=== PATIENT | female | born 1965 | race Caucasian/White ===

== ENCOUNTER 2020-12-25 14:36 | Outpatient (REF) | payer BC, SELFPAY ==
[2020-12-25 18:22] LABS: MANUAL DIFF FLAG NO
[2020-12-25 18:35] LABS: Basophils Percent Auto 0.3 % (0-2); Eosinophils Absolute Auto 0.2 X10*3/uL (0.0-0.4); Eosinophils Percent Auto 1.3 % (0-4); Hematocrit 38.7 % (37-47); Hemoglobin 12.7 g/dl (12.0-16.0); Imm Gran Abs Auto 0.05 X10*3/uL (0.00-0.03); Imm Gran Pct Auto 0.4 % (0.0-0.4); Lymphocytes Absolute Auto 2.8 X10*3/uL (1.2-4.9); Lymphocytes Percent Auto 22.2 % (20-40); Mean Corpuscular HGB Conc 32.8 g/dl (31.0-35.0); Mean Corpuscular Hemoglobin 29.8 pg (27.0-33.0); Mean Corpuscular Volume 90.8 fL (80-98); Mean Platelet Volume 10.1 fL (9.4-12.3); Monocytes Absolute Auto 0.6 X10*3/uL (0.1-1.2); Monocytes Percent Auto 4.4 % (2-11); Neutrophils Percent Auto 71.4 % (45-73); Platelet Count 244 X10*3/uL (160-400); Red Blood Count 4.26 X10*6/uL (4.20-5.50); Red Cell Distribution Width 13.8 % (11.0-16.0); White Blood Count 12.6 X10*3/uL (4.8-10.8)
[2020-12-25 19:26] LABS: Alanine Aminotransferase 17 U/L (0-31); Albumin Level 3.8 g/dL (3.5-5.0); Alkaline Phosphatase 104 U/L (39-117); Anion Gap 12 (12-20); Aspartate Amino Transferase 15 U/L (5-31); Bilirubin Total 0.3 mg/dL (0.0-1.0); Blood Urea Nitrogen 12 mg/dL (9-16); Calcium 8.9 mg/dL (8.4-10.2); Carbon Dioxide 27 mmol/L (22-29); Chloride 103 mmol/L (96-108); Estimated Glomerular Filt Rate > 60; Glucose Random 121 mg/dL (60-115); Potassium 3.7 mmol/L (3.3-5.1); Sodium 138 mmol/L (135-145); Total Protein 7.2 g/dL (6.5-8.0)
[2020-12-25 19:46] LABS: Free T4 (Free Thyroxine) 1.04 ng/dL (0.71-1.85)
== END 2020-12-25 14:37 | disposition home or self-care (01) ==
LOC: HO.MANLDS 14:36
PROVIDERS: PCP Internal Medicine; Visit Provider Physician Assistant
DX: E03.9 Hypothyroidism, unspecified (principal); I10 Essential (primary) hypertension
CPT/HCPCS: 36415; 80053; 84439; 84443; 85025

== ENCOUNTER 2021-05-23 19:33 | Inpatient (IN) | payer BC, SELFPAY ==
--- NOTE | ~2021-05-23 | CT_ITS ---
EXAMINATION: CT ANGIOGRAM OF THE CHEST WITH AND WITHOUT CONTRAST (CT PULMONARY ANGIOGRAM FOR PE) CLINICAL INFORMATION: Reason for Exam Shortness of breath, tachycardia, hypoxia COMPARISON: None TECHNIQUE: Prior to contrast administration, noncontrast localization images were obtained. Subsequently, multidetector volumetric imaging was performed from the thoracic inlet to below the diaphragms following the administration of 85 mL Omnipaque 350 intravenous contrast. No contrast reaction reported Sagittal, coronal, and MIP oblique sagittal reformatted images were obtained on the CT workstation, uploaded to PACS, and reviewed. This CT examination was performed using dose optimization techniques as appropriate, variously including the following: *Automated exposure control *Adjustment of mA and/or kV according to patient size (this includes techniques or standardized protocols for targeted exams where dose is matched to indication/reason for exam; i.e. extremities or head) *Use of iterative reconstruction technique Total exam dose-length product 158 mGy-cm FINDINGS: QUALITY OF STUDY/CONTRAST BOLUS: Satisfactory. PULMONARY ARTERIES: No central or segmental pulmonary emboli. THORACIC AORTA: No aneurysm or dissection. LUNG: There are peripherally predominant patchy groundglass opacities throughout both lungs. PLEURA: No pleural effusion or pneumothorax. MEDIASTINUM: Normal heart size. No pericardial effusion. Shotty mediastinal and bilateral hilar lymph nodes are present, not meeting size criteria for enlargement, likely reactive in etiology. No evidence of septal bowing or right heart strain. CHEST WALL/AXILLA: No axillary or internal mammary lymphadenopathy. OSSEOUS STRUCTURES: No acute or suspicious osseous abnormality. UPPER ABDOMEN: Unremarkable. CT/CT angio chest PE protocol IMPRESSION: * No pulmonary embolism. * Bilateral peripherally predominant patchy groundglass opacities, the pattern and appearance of which is suggestive of COVID pneumonitis. VTE: negative
[2021-05-23 19:42] VITALS: BP 147/83; BP 151/65; PULSE 99; RESP 18; TEMP 37; O2SAT 95; O2SAT 96; BMI 45.1
--- NOTE | 2021-05-23 20:02 | ED_ITS ---
HPI - SOB/Dyspnea General Chief Complaint: Dyspnea Stated Complaint: Shortness Breath Source: patient and EMS Mode of arrival: EMS Limitations: no limitations History of Present Illness HPI Narrative: 55-year-old female presents from urgent care via EMS for hypoxia. Patient was noted to have O2 sat at 86% on room air without exertion. Patient states that she has been ill over the past week, does not smoke, does not have a history of COPD or CHF. Has a distant history of asthma, and has not used an inhaler in over a year. MD elicited complaint: shortness of breath Pertinent past history: asthma Onset (ago): week(s) (1) Context: recent illness Timing: constant Severity: moderate Exacerbating factors: exertion, movement and coughing Relieving factors: oxygen Known history of: asthma Associated symptoms: cough and wheezing Treatment prior to arrival: oxygen Related Data Home oxygen amount: none Home Medications Medication Instructions Recorded Confirmed albuterol sulfate 90 mcg/actuation 2 puff PO Q4H 05/23/21 05/23/21 aerosol inhaler cetirizine 10 mg tablet 1 tab PO DAILY 05/23/21 05/23/21 levothyroxine 150 mcg tablet 1 tab PO DAILY 05/23/21 05/23/21 lisinopril 10 mg tablet 1 tab PO DAILY 05/23/21 05/23/21 Allergies Allergy/AdvReac Type Severity Reaction Status Date / Time No Known Allergies Allergy Verified 05/23/21 20:02 Review of Systems Review of Systems: Constitutional: No Fever, No Chills ENT/Mouth: No sore throat, No Rhinorrhea, No Swallowing Difficulty Eyes: No Eye Pain, No Swelling, No Redness Cardiovascular: No Chest Pain, positive SOB, No Orthopnea, positive Edema Respiratory: Positive hypoxia, Positive Cough, No Sputum, positive Wheezing, positive dyspnea Gastrointestinal: No Nausea, No Vomiting, No Diarrhea, No abdominal Pain, No Hematochezia, No Melena Genitourinary: No Dysuria, No Urinary Frequency, No Hematuria Musculoskeletal: No joint pain, No Myalgias Skin: No Skin Lesions, No rash Neuro: No Weakness, No Numbness, No Dizziness, No Headache Psych: No Anxiety/Panic, No Depression Heme/Lymph: No Bruising, No Lymphadenopathy Endocrine: No Polyuria, No Polydipsia Yes all other systems are reviewed and are negative [facility] Past Medical History Attestation statement: The following information was validated with the patient. Source: old records reviewed Social History Social History Advance Directives: No Patient : No Physical Exam Vital Signs: Vital Signs: Last Vital Signs Temp 100.1 F 05/23/21 22:44 Pulse 115 H 05/23/21 22:44 Resp 20 05/23/21 22:44 BP 130/63 05/23/21 22:44 Pulse Ox 94 05/23/21 22:44 Oxygen Flow Rate 2 05/23/21 19:42 Body Mass Index 45.1 Appearance: Alert. Oriented X3. No acute distress. Head: Normal external exam. Normocephalic. Atraumatic. No Dixon signs noted. No raccoon eyes noted Eyes: PERRLA. EOMI. Conjunctiva and sclera normal. Eyelids normal. ENT: TM's Normal. Pharynx normal. Uvula midline. Moist mucous membranes. No trismus noted. No drooling noted. No muffled voice noted. Neck: Normal inspection. Neck supple. No adenopathy. CVS: Tachycardic heart rate and rhythm. Heart sound normal. No murmurs noted. Pulses equal to all extremities. Respiratory: No respiratory distress. Painless inspiration. Diminished lung sounds throughout, poor air flow, bilateral expiratory wheezing at the upper lobes. Chest nontender. No accessory muscle usage noted. Abdomen: Soft and nontender. Bowel sounds normal in all 4 quadrants. No distention noted. No organomegaly noted. No visible injury noted. Back: No CVA tenderness. Full range of motion noted. Skin: Skin warm and dry. Normal skin color. Normal skin turgor. No rashes/lesions/lacerations noted. Extremities: No lower extremity edema. Extremities exhibit normal range of motion. Extremities nontender. Neuro: cranial nerves 2-12 intact, no focal neural deficits, strength 5/5 to all extremities, No motor deficit. No sensory deficit. Course Course Course Narrative: 55-year-old female presents from Urgent Care with hypoxia at 86%. During my assessment, patient is not wearing oxygen, sitting at her bedside, O2 sat 86% with a heart rate of 110. This [employer] applied nasal cannula O2 at 2 L which bumped her O2 sat up to 90-94%. Patient does not smoke, stated that she has quit smoking several years ago. No history of CHF or COPD. Patient did have an upper right infection last week. Will order CT PE study as patient is hypoxic, tachycardic. 10:24 p.m. patient is COVID positive, discussion with hospitalist, plan of care is to admit for COVID-19 pneumonia, hypoxia, PE study is still pending. 11:29 p.m. CTA negative for PE. Positive for COVID pneumonia. Consultations Consultation #1: dandy Time: 22:34 MDM - SOB/Dyspnea Differential Diagnosis Differential diagnosis: Likely acute exacerbation of chronic obstructive airways disease, congestive heart failure, pneumonia, asthma with exacerbation, pulmonary embolism and anemia Medical Records Attestation: I reviewed the patient's medical records. Lab Data Attestation: I reviewed the patient's lab results. Result diagrams: 05/23/21 20:48 05/23/21 20:48 Labs: Lab Results 05/23/21 05/23/21 05/23/21 Range/Units 20:40 20:47 20:48 WBC 4.8 (4.8-10.8) X10*3/uL RBC 4.33 (4.20-5.50) X10*6/uL Hgb 13.0 (12.0-16.0) g/dl Hct 39.0 (37-47) % MCV 90.1 (80-98) fL MCH 30.0 (27.0-33.0) pg MCHC 33.3 (31.0-35.0) g/dl RDW 14.5 (11.0-16.0) % Plt Count 157 L D (160-400) X10*3/uL MPV 9.8 (9.4-12.3) fL Immature Gran % (Auto) 0.4 (0.0-0.4) % Neut % (Auto) 63.2 (45-73) % Lymph % (Auto) 30.0 (20-40) % [place] % (Auto) 6.2 (2-11) % Eos % (Auto) 0.0 (0-4) % Baso % (Auto) 0.2 (0-2) % Lymph # (Auto) 1.5 (1.2-4.9) X10*3/uL [place] # (Auto) 0.3 (0.1-1.2) X10*3/uL Eos # (Auto) 0.0 (0.0-0.4) X10*3/uL Baso # (Auto) 0.0 (0.0-0.2) X10*3/uL Abs Immat Gran (auto) 0.02 (0.00-0.03) X10*3/uL Absolute Neuts (auto) 3.1 (2.0-8.3) X10*3/uL Absolute Nucleated RBC 0.000 (0.0-0.012) X10*3/uL Nucleated RBC % (auto) 0.0 (0.0-0.2) /100WBC Smear Tech's Comments VERIFIED PT (9.9-13.0) SEC INR (0.9-1.1) APTT (24.1-38.0) SEC Sodium (135-145) mmol/L Potassium (3.3-5.1) mmol/L Chloride (96-108) mmol/L Carbon Dioxide (22-29) mmol/L Anion Gap (12-20) BUN (9-16) mg/dL Creatinine (0.5-1.4) mg/dL Estim Creat Clear Calc Estimated GFR Random Glucose (60-115) mg/dL Lactic Acid 1.0 (0.5-2.0) mmol/L Calcium (8.4-10.2) mg/dL Total Bilirubin (0.0-1.0) mg/dL Direct Bilirubin (0.0-0.5) mg/dL AST (5-31) U/L ALT (0-31) U/L Alkaline Phosphatase (39-117) U/L Troponin I High Sens (<3.5-17.0) ng/L B-Natriuretic Peptide (<100) pg/mL Total Protein (6.5-8.0) g/dL Albumin (3.5-5.0) g/dL Lipase (8-78) U/L Coronavirus (PCR) POSITIVE A (Negative) Influenza Type A (PCR) NEGATIVE (Negative) Influenza Type B (PCR) NEGATIVE (Negative) RSV RNA Qual (PCR) NEGATIVE (Negative) 05/23/21 05/23/21 05/23/21 Range/Units 20:48 20:48 20:48 WBC (4.8-10.8) X10*3/uL RBC (4.20-5.50) X10*6/uL Hgb (12.0-16.0) g/dl Hct (37-47) % MCV (80-98) fL MCH (27.0-33.0) pg MCHC (31.0-35.0) g/dl RDW (11.0-16.0) % Plt Count (160-400) X10*3/uL MPV (9.4-12.3) fL Immature Gran % (Auto) (0.0-0.4) % Neut % (Auto) (45-73) % Lymph % (Auto) (20-40) % [place] % (Auto) (2-11) % Eos % (Auto) (0-4) % Baso % (Auto) (0-2) % Lymph # (Auto) (1.2-4.9) X10*3/uL [place] # (Auto) (0.1-1.2) X10*3/uL Eos # (Auto) (0.0-0.4) X10*3/uL Baso # (Auto) (0.0-0.2) X10*3/uL Abs Immat Gran (auto) (0.00-0.03) X10*3/uL Absolute Neuts (auto) (2.0-8.3) X10*3/uL Absolute Nucleated RBC (0.0-0.012) X10*3/uL Nucleated RBC % (auto) (0.0-0.2) /100WBC Smear Tech's Comments PT 12.7 (9.9-13.0) SEC INR 1.1 (0.9-1.1) APTT 30.1 (24.1-38.0) SEC Sodium 139 (135-145) mmol/L Potassium 3.9 (3.3-5.1) mmol/L Chloride 100 (96-108) mmol/L Carbon Dioxide 30 H (22-29) mmol/L Anion Gap 13 (12-20) BUN 11 (9-16) mg/dL Creatinine 0.70 (0.5-1.4) mg/dL Estim Creat Clear Calc 114.0 Estimated GFR > 60 Random Glucose 94 (60-115) mg/dL Lactic Acid (0.5-2.0) mmol/L Calcium 8.7 (8.4-10.2) mg/dL Total Bilirubin 0.4 (0.0-1.0) mg/dL Direct Bilirubin 0.2 (0.0-0.5) mg/dL AST 36 H D (5-31) U/L ALT 37 H (0-31) U/L Alkaline Phosphatase 92 (39-117) U/L Troponin I High Sens 4.6 (<3.5-17.0) ng/L B-Natriuretic Peptide < 10 (<100) pg/mL Total Protein 7.8 (6.5-8.0) g/dL Albumin 3.9 (3.5-5.0) g/dL Lipase 40 (8-78) U/L Coronavirus (PCR) (Negative) Influenza Type A (PCR) (Negative) Influenza Type B (PCR) (Negative) RSV RNA Qual (PCR) (Negative) Imaging Data CT PE: Attestation: I personally reviewed and interpreted this imaging study as follows: Radiologist's impression: EXAMINATION: CT ANGIOGRAM OF THE CHEST WITH AND WITHOUT CONTRAST (CT PULMONARY ANGIOGRAM FOR PE) CLINICAL INFORMATION: Reason for Exam Shortness of breath, tachycardia, hypoxia COMPARISON: None? TECHNIQUE: Prior to contrast administration, noncontrast localization images were obtained. ? Subsequently, multidetector volumetric imaging was performed from the thoracic inlet to below the diaphragms following the administration of 85 mL Omnipaque 350 intravenous contrast. No contrast reaction reported Sagittal, coronal, and MIP oblique sagittal reformatted images were obtained on the CT workstation, uploaded to PACS, and reviewed. This CT examination was performed using dose optimization techniques as appropriate, variously including the following: *Automated exposure control *Adjustment of mA and/or kV according to patient size (this includes techniques or standardized protocols for targeted exams where dose is matched to indication/reason for exam; i.e. extremities or head) *Use of iterative reconstruction technique Total exam dose-length product 158 mGy-cm FINDINGS: QUALITY OF STUDY/CONTRAST BOLUS: Satisfactory. PULMONARY ARTERIES: No central or segmental pulmonary emboli.? THORACIC AORTA: No aneurysm or dissection. LUNG: There are peripherally predominant patchy groundglass opacities throughout both lungs. PLEURA: No pleural effusion or pneumothorax. MEDIASTINUM: Normal heart size.? No pericardial effusion. Shotty mediastinal and bilateral hilar lymph nodes are present, not meeting size criteria for enlargement, likely reactive in etiology.? No evidence of septal bowing or right heart strain. CHEST WALL/AXILLA: No axillary or internal mammary lymphadenopathy. OSSEOUS STRUCTURES: No acute or suspicious osseous abnormality.? UPPER ABDOMEN: Unremarkable. CT/CT angio chest PE protocol IMPRESSION: *? No pulmonary embolism. *? Bilateral peripherally predominant patchy groundglass opacities, the pattern and appearance of which is suggestive of COVID pneumonitis. ? VTE: negative ECG Data Attestation: I personally reviewed and interpreted this ECG as follows: ECG interpretation date: 05/23/21 ECG interpretation time: 20:53 Interpretation: Ventricular rate 98 beats per minute, OK 164, QRS 80, QT 338, QTC 431, normal sinus rhythm, prior EKGs unavailable secondary to system 130 error Critical Care Time Critical Care Time Critical Care Time: Yes Total Critical Care Time: 45 Attestation: I have personally provided critical care time exclusive of time spent on separately billable procedures. Time includes review of laboratory data, radiology results, discussion with consultants, and monitoring for potential decompensation. Interventions were performed as documented. Discharge Plan Discharge Clinical Impression: COVID-19, Hypoxia Patient Disposition: Admitted As Inpatient
--- NOTE | 2021-05-23 20:02 | ECG_ITS ---
Test Reason : shortness of breath Blood Pressure : / mmHG Vent. Rate : 098 BPM Atrial Rate : 098 BPM P-R Int : 164 ms QRS Dur : 080 ms QT Int : 338 ms P-R-T Axes : 043 -01 040 degrees QTc Int : 431 ms Normal sinus rhythm RSR' or QR pattern in V1 suggests right ventricular conduction delay Otherwise normal ECG No previous ECGs available Referred By: Brenna Hernandez Electronically Signed By:AUDREY GOMEZ MD
[2021-05-23 20:56] LABS: Basophils Percent Auto 0.2 % (0-2); Imm Gran Abs Auto 0.02 X10*3/uL (0.00-0.03); Imm Gran Pct Auto 0.4 % (0.0-0.4); Lymphocytes Absolute Auto 1.5 X10*3/uL (1.2-4.9); MANUAL DIFF FLAG SCAN; Mean Corpuscular HGB Conc 33.3 g/dl (31.0-35.0); Mean Corpuscular Volume 90.1 fL (80-98); Mean Platelet Volume 9.8 fL (9.4-12.3); Monocytes Absolute Auto 0.3 X10*3/uL (0.1-1.2); Monocytes Percent Auto 6.2 % (2-11); Neutrophils Absolute Auto 3.1 X10*3/uL (2.0-8.3); Neutrophils Percent Auto 63.2 % (45-73); Platelet Count 157 X10*3/uL (160-400); Red Blood Count 4.33 X10*6/uL (4.20-5.50); Red Cell Distribution Width 14.5 % (11.0-16.0); SCAN SMEAR FLAG 1; White Blood Count 4.8 X10*3/uL (4.8-10.8)
[2021-05-23 21:02] LABS: INTERNATIONAL NORM RATIO 1.1 (0.9-1.1); Prothrombin Time 12.7 SEC (9.9-13.0)
[2021-05-23 21:05] LABS: Partial Thromboplastin Time 30.1 SEC (24.1-38.0)
[2021-05-23 21:13] LABS: Alanine Aminotransferase 37 U/L (0-31); Albumin Level 3.9 g/dL (3.5-5.0); Alkaline Phosphatase 92 U/L (39-117); Anion Gap 13 (12-20); Aspartate Amino Transferase 36 U/L (5-31); Bilirubin Direct 0.2 mg/dL (0.0-0.5); Bilirubin Total 0.4 mg/dL (0.0-1.0); Blood Urea Nitrogen 11 mg/dL (9-16); Calcium 8.7 mg/dL (8.4-10.2); Carbon Dioxide 30 mmol/L (22-29); Chloride 100 mmol/L (96-108); Estimated Glomerular Filt Rate > 60; Glucose Random 94 mg/dL (60-115); Lipase 40 U/L (8-78); Potassium 3.9 mmol/L (3.3-5.1); Sodium 139 mmol/L (135-145); Total Protein 7.8 g/dL (6.5-8.0)
[2021-05-23 21:16] LABS: B Type Natriuretic Peptide < 10 pg/mL (<100); Troponin-I High Sensitivity 4.6 ng/L (<3.5-17.0)
[2021-05-23 21:22] LABS: SLIDE REVIEW VERIFIED
[2021-05-23] MEDS: iohexoL 350 MG/ML 100 ML INFUS..BTL IV (21:51)
[2021-05-23] MEDS: Albuterol Sulfate (0.083%) 2.5 MG/3 ML VIAL.NEB 10 MG INHALE (21:53)
[2021-05-23 21:54] VITALS: PULSE 90; O2SAT 96
[2021-05-23 21:54] LABS: Influenza A PCR NEGATIVE (Negative); Influenza B PCR NEGATIVE (Negative); Resp Syncy Virus RNA Qual PCR NEGATIVE (Negative); SARS COV2 PCR INHOUSE POSITIVE (Negative)
[2021-05-23] MEDS: methylPREDNISolone Sod Succ 125 MG/2 ML VIAL IVPUSH (22:00)
[2021-05-23] MEDS: cefTRIAXone sodium 1 GM in 0.9 % Sodium Chloride 50 ML IV (22:01)
--- NOTE | 2021-05-23 22:27 | PM.IMHP ---
History of Present Illness Date of Service: 05/23/21 Chief Complaint: Shortness of breath 55-year-old female with no significant past medical history presented to the hospital with a chief complaint of shortness of breath. Patient reported that she is not feeling well over the past 1 week initially felt better for couple days and then she started failed short of breath, dyspnea on exertion and generalized tiredness. Also complains generalized body aches. Went to the urgent care today where she was noted to be low on oxygen and subsequently sent to the hospital for further evaluation. Denies any chest pain palpitations lightheadedness or dizziness. Denies any fevers. Denies any numbness tingling Denies any GI or symptoms. Review of all other systems is negative except mentioned above ER course: Per ER team patient on presentation noted to be saturating at 86% on room air; subsequently placed on 2 L of nasal cannula with improvement of oxygen shown to 93%.; COVID-19 came back positive; CT angio of the chest was done. Was awaiting results. Given Solu-Medrol, ceftriaxone. Admitted to the hospital for further management. Also reported that EKG was nonischemic and troponin was negative. [facility] Pertinent family history: Reviewed Social History Advance Directives: No Patient : No Meds Allergies Allergy/AdvReac Type Severity Reaction Status Date / Time No Known Allergies Allergy Verified 05/23/21 20:02 Active Medications: Current Medications Pharmacy Consult (Consult Rx Perform Med Rec) 1 each MISCELLANE ONCE STA Stop: 05/23/21 22:19 Physical Exam Vital Signs and Narrative: Vital Signs: Last Vital Signs Temp 98.6 F 05/23/21 19:42 Pulse 90 05/23/21 21:54 Resp 18 05/23/21 19:42 BP 151/65 H 05/23/21 19:42 Pulse Ox 95 05/23/21 19:42 Oxygen Flow Rate 2 05/23/21 19:42 Body Mass Index 45.1 Gen: Appears be in no acute distress; speaks in full sentences. On supplemental oxygen. HEENT: NCAT, Moist mucosa. Pulmonary: Coarse breath sounds CVS: Normal S1-S2 Abdomen: BS+, Soft, Nontender Extremities: Warm well perfused Neuro: Alert and awake. Grossly nonfocal Results Labs CBC and Chem 7: 05/23/21 20:48 05/23/21 20:48 Labs: Laboratory Results - last 24 hr 05/23/21 05/23/21 05/23/21 20:40 20:47 20:48 MCV 90.1 MCH 30.0 MCHC 33.3 RDW 14.5 Plt Count 157 L D MPV 9.8 Immature Gran % (Auto) 0.4 Neut % (Auto) 63.2 Lymph % (Auto) 30.0 [place] % (Auto) 6.2 Eos % (Auto) 0.0 Baso % (Auto) 0.2 Lymph # (Auto) 1.5 [place] # (Auto) 0.3 Eos # (Auto) 0.0 Baso # (Auto) 0.0 Abs Immat Gran (auto) 0.02 Absolute Neuts (auto) 3.1 Absolute Nucleated RBC 0.000 Nucleated RBC % (auto) 0.0 Smear Tech's Comments VERIFIED PT INR APTT Anion Gap Estim Creat Clear Calc Estimated GFR Random Glucose Lactic Acid 1.0 Calcium Total Bilirubin Direct Bilirubin AST ALT Alkaline Phosphatase Troponin I High Sens B-Natriuretic Peptide Total Protein Albumin Lipase Coronavirus (PCR) POSITIVE A Influenza Type A (PCR) NEGATIVE Influenza Type B (PCR) NEGATIVE RSV RNA Qual (PCR) NEGATIVE 05/23/21 05/23/21 05/23/21 20:48 20:48 20:48 MCV MCH MCHC RDW Plt Count MPV Immature Gran % (Auto) Neut % (Auto) Lymph % (Auto) [place] % (Auto) Eos % (Auto) Baso % (Auto) Lymph # (Auto) [place] # (Auto) Eos # (Auto) Baso # (Auto) Abs Immat Gran (auto) Absolute Neuts (auto) Absolute Nucleated RBC Nucleated RBC % (auto) Smear Tech's Comments PT 12.7 INR 1.1 APTT 30.1 Anion Gap 13 Estim Creat Clear Calc 114.0 Estimated GFR > 60 Random Glucose 94 Lactic Acid Calcium 8.7 Total Bilirubin 0.4 Direct Bilirubin 0.2 AST 36 H D ALT 37 H Alkaline Phosphatase 92 Troponin I High Sens 4.6 B-Natriuretic Peptide < 10 Total Protein 7.8 Albumin 3.9 Lipase 40 Coronavirus (PCR) Influenza Type A (PCR) Influenza Type B (PCR) RSV RNA Qual (PCR) Imaging Radiologist's Impressions: Impressions Chest CTA 05/23/21 20:02 IMPRESSION: * No pulmonary embolism. * Bilateral peripherally predominant patchy groundglass opacities, the pattern and appearance of which is suggestive of COVID pneumonitis. VTE: negative Assessment and Plan (1) COVID-19: Status: Acute (2) Hypoxia: Status: Acute 55-year-old female with no significant past medical history presented to the hospital with a chief complaint of shortness of breath. Noted to have hypoxia in the setting of COVID-19 infection. Admitted for further management. Acute hypoxic respiratory failure: In the setting of COVID-19 infection. Patient was 86% on room air on presentation On supplemental oxygen via nasal cannula; not in respiratory distress currently. [employer] and closer to home. Azithromycin Decadron 6 mg daily Infectious disease consult for further recommendations GI prophylaxis: Pepcid DVT prophylaxis: Lovenox Code status: Full code Quality Stroke Does the patient have a stroke diagnosis?: No VTE Prior VTE?: No VTE Risk Level:: Medical - moderate - high VTE Device Contraindication: Treatment Not Indicated VTE Drug Contraindication: N/A - Med Ordered
[2021-05-23 22:43] LABS: Venous Blood Gas Refer to POC result
[2021-05-23 22:44] VITALS: BP 130/63; PULSE 115; RESP 20; TEMP 37.8; O2SAT 94
[2021-05-23 22:52] LABS: VBG Base Excess 2.6 mmol/L; VBG HCO3 26 mmol/L (22-26); VBG pCO2 35 mmHg; VBG pH 7.46 (7.32-7.43); VBG pO2 106 mmHg
[2021-05-23] MEDS: Azithromycin 500 MG in 0.9 % Sodium Chloride 250 ML 125 MG IV (22:56)
[2021-05-23] MEDS: Enoxaparin Sodium 40 MG/0.4 ML SYRINGE SUBCUT (22:56)
[2021-05-24] VITALS (10 sets, daily range): BP systolic 119–140; BP diastolic 56–83; PULSE 71–91; RESP 18–24; TEMP 36.6–37.2; O2SAT 91–96; BMI 45.3
[2021-05-24] MEDS: 0.9 % Sodium Chloride Flush 3 ML SYRINGE IVFLUSH ×4 (01:12→22:18)
--- NOTE | 2021-05-24 04:55 | PC.NURSE ---
ADMIT TO 259-1 C OVERFLOW STATUS...AMBULATED FROM STRETCHER TO BED WITH STEADY GAIT...ALERT..ORIENTED X3...SPEECH CLEAR...O2 5 L/M CANNULA..SAO2 92-93%...DENIES SOB....VSS....ORIENTED TO UNIT ROUTINE/ENVIRONMENT...DENIES/OFFERS NO COMPLAINTS...
[2021-05-24 05:33] LABS: Imm Gran Abs Auto 0.01 X10*3/uL (0.00-0.03); Imm Gran Pct Auto 0.3 % (0.0-0.4); Lymphocytes Absolute Auto 0.6 X10*3/uL (1.2-4.9); Lymphocytes Percent Auto 18.4 % (20-40); MANUAL DIFF FLAG SCAN; Mean Corpuscular HGB Conc 33.3 g/dl (31.0-35.0); Mean Corpuscular Hemoglobin 29.8 pg (27.0-33.0); Mean Corpuscular Volume 89.3 fL (80-98); Mean Platelet Volume 9.8 fL (9.4-12.3); Monocytes Absolute Auto 0.1 X10*3/uL (0.1-1.2); Monocytes Percent Auto 2.7 % (2-11); Neutrophils Absolute Auto 2.6 X10*3/uL (2.0-8.3); Neutrophils Percent Auto 78.6 % (45-73); Platelet Count 162 X10*3/uL (160-400); Red Blood Count 4.03 X10*6/uL (4.20-5.50); Red Cell Distribution Width 14.3 % (11.0-16.0); SCAN SMEAR FLAG 1; White Blood Count 3.3 X10*3/uL (4.8-10.8)
[2021-05-24 05:46] LABS: Anion Gap 14 (12-20); Blood Urea Nitrogen 10 mg/dL (9-16); Calcium 8.4 mg/dL (8.4-10.2); Carbon Dioxide 25 mmol/L (22-29); Chloride 102 mmol/L (96-108); Creatinine Clr Calc Pharmacy 105.2; Estimated Glomerular Filt Rate > 60; Glucose Random 236 mg/dL (60-115); Potassium 3.9 mmol/L (3.3-5.1); Sodium 137 mmol/L (135-145)
[2021-05-24 05:57] LABS: SLIDE REVIEW VERIFIED
--- NOTE | 2021-05-24 08:38 | P.PNIM_ITS ---
Subjective Subjective Date of Service: 05/24/21 Interval History: Seen for acute hypoxic respiratory failure d/t covid 19 PNA. Review of Systems Gen: no fever Resp: no sob, no cough CV: no chest, no SANDERS, no leg edema GI: No n/v, no abd pain Neuro: No confusion Physical Exam Vital Signs: Vital Signs: Last Vital Signs Temp 98.9 F 05/24/21 08:00 Pulse 72 05/24/21 08:00 Resp 23 H 05/24/21 08:00 BP 131/81 05/24/21 08:00 Pulse Ox 92 05/24/21 08:00 Oxygen Flow Rate 2 05/23/21 19:42 Body Mass Index 45.3 General: AO X 3, no acute distress Resp: normal breating pattern, speaks in full sentences CVS: S1,S2,RRR GI: +BS, NT, no distention Skin: No rash Neuro: motor grossly intact Psych: appropriate affect Objective Data Active Medications Acetaminophen (Acetaminophen 325 Mg Tablet) 650 mg PO Q6H PRN PRN Reason: Pain, Mild (Pain Scale 1-3) Albuterol/Ipratropium (Albuterol/Iprat 2.5/0.5mg 3 Ml Ampul.Neb) 3 ml INHALE RQ4H PRN PRN Reason: Shortness of Breath/Wheezing Dexamethasone (Dexamethasone 6 Mg Tablet) 6 mg PO DAILY [facility] Enoxaparin Sodium (Enoxaparin Sodium 40 Mg/0.4 Ml Syringe) 40 mg SUBCUT Q12H [facility] Last Admin: 05/23/21 22:56 Dose: 40 mg Documented by: PALAK Famotidine (Famotidine/Pf 20 Mg/2 Ml Vial) 20 mg IVPUSH BID [facility] Azithromycin 500 mg/ Sodium (Chloride) 250 mls @ 125 mls/hr IV Q24H [facility] Last Infusion: 05/24/21 01:11 Dose: 0 mls/hr Documented by: PALAK Melatonin (Melatonin 3 Mg Tablet) 6 mg PO BEDTIME PRN PRN Reason: Insomnia Morphine Sulfate (Morphine Sulfate 2 Mg/Ml Cartridge) 1 mg IVPUSH Q4H PRN; Protocol PRN Reason: Pain, SOB Senna (Sennosides 8.6 Mg Tablet) 17.2 mg PO BEDTIME PRN PRN Reason: Constipation Sodium Chloride (0.9 % Sodium Chloride Flush 3 Ml Syringe) 3 ml IVFLUSH QSHIFT [facility] Last Admin: 05/24/21 01:12 Dose: 3 ml Documented by: PALAK Labs CBC & Chem 7: 05/24/21 05:14 05/24/21 05:14 Labs: Laboratory Results - last 24 hr 05/23/21 05/23/21 05/23/21 20:40 20:47 20:48 MCV 90.1 MCH 30.0 MCHC 33.3 RDW 14.5 Plt Count 157 L D MPV 9.8 Immature Gran % (Auto) 0.4 Neut % (Auto) 63.2 Lymph % (Auto) 30.0 Louisa % (Auto) 6.2 Eos % (Auto) 0.0 Baso % (Auto) 0.2 Lymph # (Auto) 1.5 Louisa # (Auto) 0.3 Eos # (Auto) 0.0 Baso # (Auto) 0.0 Abs Immat Gran (auto) 0.02 Absolute Neuts (auto) 3.1 Absolute Nucleated RBC 0.000 Nucleated RBC % (auto) 0.0 Smear Tech's Comments VERIFIED PT INR APTT VBG pH VBG pCO2 VBG pO2 VBG HCO3 VBG O2 Saturation VBG Base Excess Anion Gap Estim Creat Clear Calc Estimated GFR Random Glucose Lactic Acid 1.0 Calcium Total Bilirubin Direct Bilirubin AST ALT Alkaline Phosphatase Troponin I High Sens B-Natriuretic Peptide Total Protein Albumin Lipase Coronavirus (PCR) POSITIVE A Influenza Type A (PCR) NEGATIVE Influenza Type B (PCR) NEGATIVE RSV RNA Qual (PCR) NEGATIVE 05/23/21 05/23/21 05/23/21 20:48 20:48 20:48 MCV MCH MCHC RDW Plt Count MPV Immature Gran % (Auto) Neut % (Auto) Lymph % (Auto) Louisa % (Auto) Eos % (Auto) Baso % (Auto) Lymph # (Auto) Louisa # (Auto) Eos # (Auto) Baso # (Auto) Abs Immat Gran (auto) Absolute Neuts (auto) Absolute Nucleated RBC Nucleated RBC % (auto) Smear Tech's Comments PT 12.7 INR 1.1 APTT 30.1 VBG pH VBG pCO2 VBG pO2 VBG HCO3 VBG O2 Saturation VBG Base Excess Anion Gap 13 Estim Creat Clear Calc 114.0 Estimated GFR > 60 Random Glucose 94 Lactic Acid Calcium 8.7 Total Bilirubin 0.4 Direct Bilirubin 0.2 AST 36 H D ALT 37 H Alkaline Phosphatase 92 Troponin I High Sens 4.6 B-Natriuretic Peptide < 10 Total Protein 7.8 Albumin 3.9 Lipase 40 Coronavirus (PCR) Influenza Type A (PCR) Influenza Type B (PCR) RSV RNA Qual (PCR) 05/23/21 05/24/21 05/24/21 22:42 05:14 05:14 MCV 89.3 MCH 29.8 MCHC 33.3 RDW 14.3 Plt Count 162 MPV 9.8 Immature Gran % (Auto) 0.3 Neut % (Auto) 78.6 H Lymph % (Auto) 18.4 L Louisa % (Auto) 2.7 Eos % (Auto) 0.0 Baso % (Auto) 0.0 Lymph # (Auto) 0.6 L Louisa # (Auto) 0.1 Eos # (Auto) 0.0 Baso # (Auto) 0.0 Abs Immat Gran (auto) 0.01 Absolute Neuts (auto) 2.6 Absolute Nucleated RBC 0.000 Nucleated RBC % (auto) 0.0 Smear Tech's Comments VERIFIED PT INR APTT VBG pH 7.46 H VBG pCO2 35 VBG pO2 106 VBG HCO3 26 VBG O2 Saturation 97.0 VBG Base Excess 2.6 Anion Gap 14 Estim Creat Clear Calc 105.2 Estimated GFR > 60 Random Glucose 236 H Lactic Acid Calcium 8.4 Total Bilirubin Direct Bilirubin AST ALT Alkaline Phosphatase Troponin I High Sens B-Natriuretic Peptide Total Protein Albumin Lipase Coronavirus (PCR) Influenza Type A (PCR) Influenza Type B (PCR) RSV RNA Qual (PCR) Assessment and Plan (1) COVID-19: Status: Acute Assessment and Plan: 55-year-old female obese here with covid 19 associated acute hypoxic respriatory failure Covid-19 with hypoxia, oset more than a week ago -continue Decadrone -Oxygen and wean as tolerated -High dose pepcid -No indication for Abx -ID consult pending Obesity--weight loss suggested via exercise, diet and --undoubtly obesity is making present respiratory failure worse Quality Stroke Does the patient have a stroke diagnosis?: No VTE Prior VTE?: No VTE Risk Level:: Medical - moderate - high VTE Device Contraindication: Treatment Not Indicated VTE Drug Contraindication: N/A - Med Ordered
[2021-05-24] MEDS: dexAMETHasone 6 MG TABLET PO (09:15)
[2021-05-24] MEDS: Enoxaparin Sodium 40 MG/0.4 ML SYRINGE SUBCUT ×2 (09:17→22:18)
[2021-05-24] MEDS: Famotidine 20 MG TABLET 40 MG PO ×2 (09:19→22:18)
--- NOTE | 2021-05-24 11:24 | MHC.CM.PN ---
Pt in ICU preparing to transfer to [facility] [place] continued care. Pt resides alone, drives, works and does not have services or any barriers to self care. No services are anticipated at this time: pt will contact her sister Shanna for transportation home: Call placed to Shanna to verify and remind her to wear a mask around pt at all times. Pt unsure about HCP but is agreeable to a reapproach when she feels better. CM to follow.
--- NOTE | 2021-05-24 14:26 | CONS_ITS ---
DATE OF SERVICE: 05/24/2021 INDICATION: Shortness of breath. HISTORY OF PRESENT ILLNESS: Ms. Epstein is a 55-year-old woman with an unremarkable past medical history, who apparently was in usual state of health until more than a week ago when she started developing flu-like symptoms. Initially, she just thought she had an upper respiratory virus and she stayed home. The patient apparently started getting worse a week after her illness and she became more short of breath and also coughing and more congested, at which point, she became concerned and called EMS. She was brought to the [facility] ED, where she was found to be hypoxic down to 86% on room air. She was admitted to the hospital and placed on Decadron. The patient has been sick now for more than a week, so therefore, would benefit from remdesivir. The patient is not on high-flow, so therefore she is not a candidate for the IL-6 inhibitors. She has a nasal cannula currently on 5 L. I did look at the CAT scan demonstrating peripheral ground-glass airspace disease consistent with COVID pneumonia. REVIEW OF SYSTEMS: Ten systems reviewed. Denies any fever or chills. At this point, complains of URI symptoms, complains of shortness of breath in addition to productive cough. She has not looked at the sputum. Denies any chest pains. Denies any palpitations. Denies any GI or symptoms. Denies any musculoskeletal symptoms. The rest of the 10-organ systems negative. PAST MEDICAL HISTORY: History of asthma. ALLERGIES: PLEASE REFER TO THE [facility] FOR THE FULL LIST. MEDICATIONS: Please refer to the [facility] for the full list. At home, she does take lisinopril, levothyroxine, Cetirizine, and albuterol. In the hospital, she has also been on Decadron 6 mg daily, DuoNeb, melatonin, Lovenox, Pepcid. SOCIAL HISTORY: The patient is a nonsmoker. FAMILY HISTORY: Noncontributory. PHYSICAL EXAMINATION: VITAL SIGNS: Stable. Saturating 92% on 4 to 5 L. She is afebrile. GENERAL: Pleasant lady, in no acute distress. HEENT: Pupils equal and reactive to light. Oropharynx clear. NECK: Supple. CARDIAC: Regular rhythm. Regular rate. No extra heart sounds. LUNGS: Diminished with some minimal crackles primarily on the right lung base. ABDOMEN: Positive bowel sounds, soft. EXTREMITIES: No clubbing or cyanosis. LABORATORY DATA: White count is down to 3.3 with evidence of lymphopenia consistent with COVID infection. Her D-dimer was not checked. She did have a blood gas with a pH of 7.46, pCO2 of 35, pO2 of 106, and chemistries just with elevated blood sugars. COVID test is positive. I do not see any inflammatory markers. As far as imaging, she did have a CT scan of the chest, PE protocol without any evidence of any PEs, although she has bilateral peripheral patchy ground-glass opacities consistent with COVID infection. ASSESSMENT: Ms. Epstein is a 55-year-old woman with history of asthma, presenting with acute hypoxic respiratory failure. 1. Acute hypoxic respiratory failure secondary to lower respiratory infection. 2. COVID-19 pneumonia, now more than a week since she started with symptoms. Therefore, she is not a candidate for remdesivir. She is currently on Decadron. The patient is not on high flow, therefore, she is not a candidate for IL-6 inhibitors. RECOMMENDATIONS: Continue with Decadron. Continue with respiratory treatments. Would be reasonable to put her on doxy because she is getting a productive cough and postviral bacterial infections are very high in the possibilities. The patient will perform awake proning. We will continue to assess her progress hopefully if she can titrate down on the oxygen. When she is stable, she may be able to go home on oxygen and follow up. If her condition worsens, inflammatory markers will be helpful to assess her progress. MD ANA ROSA Escobedo/TAYLOR / [phone]
--- NOTE | 2021-05-24 18:05 | PC.NURSE ---
Patient expressing concern that case management and other members of the team have been reaching out directly to her primary contact/Sister Shanna and not her when she is A&O x3. Informed patient that case management has left for the day but will relay message and mention in nursing report to be adressed during day shift.
--- NOTE | 2021-05-24 21:27 | P.CNID_ITS ---
History of Present Illness Data of Consult Service Date: 05/24/21 Requesting physician: Umang Thomas Primary Care Provider: Ishan Pineda MD [facility] Reason for consult: COVID,pneumonia She presents with shortness of breath and cough for a week She has chills as well She is not interested in COVID vaccine and doesnt want Remdesivir Review of Systems Review of Systems: Yes all other systems are reviewed and are negative [facility] Past Medical History Medical History (Updated 06/02/21 @ 00:03 by El Huber) Acute respiratory failure due to COVID-19 Social History Social History Housing: House Do you presently have visiting nurse or other home services: No Unable to assess alcohol history related to: Unknown Patient Tobacco Use Status: Tobacco use Unknown service: No Current occupational status: employed Meds Allergies Allergy/AdvReac Type Severity Reaction Status Date / Time No Known Allergies Allergy Verified 05/23/21 20:02 Active Medications: Current Medications Acetaminophen (Acetaminophen 325 Mg Tablet) 650 mg PO Q6H PRN PRN Reason: Pain, Mild (Pain Scale 1-3) Albuterol/Ipratropium (Albuterol/Iprat 2.5/0.5mg 3 Ml Ampul.Neb) 3 ml INHALE RQ4H PRN PRN Reason: Shortness of Breath/Wheezing Dexamethasone (Dexamethasone 6 Mg Tablet) 6 mg PO DAILY [facility] Last Admin: 05/24/21 09:15 Dose: 6 mg Documented by: Doxycycline Hyclate (Doxycycline Hyclate 100 Mg Tablet) 100 mg PO Q12H [facility] Last Admin: 05/24/21 17:39 Dose: 100 mg Documented by: Enoxaparin Sodium (Enoxaparin Sodium 40 Mg/0.4 Ml Syringe) 40 mg SUBCUT Q12H [facility] Last Admin: 05/24/21 09:17 Dose: 40 mg Documented by: Famotidine (Famotidine 20 Mg Tablet) 40 mg PO BID [facility] Last Admin: 05/24/21 09:19 Dose: 40 mg Documented by: Melatonin (Melatonin 3 Mg Tablet) 6 mg PO BEDTIME PRN PRN Reason: Insomnia Morphine Sulfate (Morphine Sulfate 2 Mg/Ml Cartridge) 1 mg IVPUSH Q4H PRN; Protocol PRN Reason: Pain, SOB Senna (Sennosides 8.6 Mg Tablet) 17.2 mg PO BEDTIME PRN PRN Reason: Constipation Sodium Chloride (0.9 % Sodium Chloride Flush 3 Ml Syringe) 3 ml IVFLUSH QSHIFT [facility] Last Admin: 05/24/21 17:39 Dose: 3 ml Documented by: Home Medications Medication Instructions Recorded Confirmed Last Taken Type albuterol sulfate 90 mcg/actuation 2 puff PO Q4H 05/23/21 05/23/21 05/23/21 08:00 History aerosol inhaler cetirizine 10 mg tablet 1 tab PO DAILY 05/23/21 05/23/21 05/23/21 08:00 History levothyroxine 150 mcg tablet 1 tab PO DAILY 05/23/21 05/23/21 05/23/21 08:00 History lisinopril 10 mg tablet 1 tab PO DAILY 05/23/21 05/23/21 05/23/21 08:00 History Physical Exam Vital Signs: Vital Signs: Last Vital Signs Temp 98.4 F 05/24/21 19:26 Pulse 91 05/24/21 19:26 Resp 20 05/24/21 19:26 BP 140/83 H 05/24/21 19:26 Pulse Ox 91 L 05/24/21 19:26 Oxygen Flow Rate 2 05/23/21 19:42 Body Mass Index 45.3 Const: General: cooperative HENMT: Head: Yes normal to inspection Mouth: Normal oral and palatal mucosa present Eyes: General: appearance normal, both eyes and all related structures Resp: Effort & Inspection: normal respiratory effort and able to speak in complete sentences Cardio: Rate: regular rate Rhythm: regular rhythm GI: Palpation (GI): nontender Results Labs CBC & Chem 7: 05/24/21 05:14 05/24/21 05:14 Labs: Short CBC 05/24/21 Range/Units 05:14 WBC 3.3 L (4.8-10.8) X10*3/uL Hgb 12.0 (12.0-16.0) g/dl Hct 36.0 L (37-47) % Plt Count 162 (160-400) X10*3/uL BMP 05/24/21 05:14 Sodium 137 Potassium 3.9 Chloride 102 Carbon Dioxide 25 BUN 10 Creatinine 0.76 Calcium 8.4 Assessment and Plan (1) COVID-19: Status: Acute COVID cause of hypoxia She declines Remdesivir and vaccine Suggest Continue steroids for 10 days total. Po Doxycycline for a week (2) Hypoxia: Status: Resolved
[2021-05-25 03:13] VITALS: BP 131/74; PULSE 76; RESP 18; TEMP 36.6; O2SAT 92
--- NOTE | 2021-05-25 07:54 | P.PNIM_ITS ---
Subjective Subjective Date of Service: 05/25/21 Interval History: Seen for acute hypoxic respiratory failure d/t covid 19 PNA. Feels fine no sob Review of Systems Gen:?no fever Resp:?no sob, no cough CV:?no chest, no SANDERS, no leg edema GI:?No n/v, no abd pain Neuro:?No confusion Physical Exam Vital Signs: Vital Signs: Last Vital Signs Temp 97.8 F 05/25/21 03:13 Pulse 76 05/25/21 03:13 Resp 18 05/25/21 03:13 BP 131/74 05/25/21 03:13 Pulse Ox 92 05/25/21 03:13 Oxygen Flow Rate 2 05/23/21 19:42 Body Mass Index 45.3 General: AO X 3, no acute distress Resp: CTA bilateral CVS: S1,S2,RRR GI: +BS, NT, no distention Skin: No rash Neuro: motor grossly intact Psych: appropriate affect Objective Data Active Medications Acetaminophen (Acetaminophen 325 Mg Tablet) 650 mg PO Q6H PRN PRN Reason: Pain, Mild (Pain Scale 1-3) Albuterol/Ipratropium (Albuterol/Iprat 2.5/0.5mg 3 Ml Ampul.Neb) 3 ml INHALE RQ4H PRN PRN Reason: Shortness of Breath/Wheezing Dexamethasone (Dexamethasone 6 Mg Tablet) 6 mg PO DAILY [facility] Last Admin: 05/24/21 09:15 Dose: 6 mg Documented by: CHAVEZ Doxycycline Hyclate (Doxycycline Hyclate 100 Mg Tablet) 100 mg PO Q12H [facility] Last Admin: 05/25/21 05:15 Dose: 100 mg Documented by: LABELPÉREZ Enoxaparin Sodium (Enoxaparin Sodium 40 Mg/0.4 Ml Syringe) 40 mg SUBCUT Q12H [facility] Last Admin: 05/24/21 22:18 Dose: 40 mg Documented by: LABELLN Famotidine (Famotidine 20 Mg Tablet) 40 mg PO BID [facility] Last Admin: 05/24/21 22:18 Dose: 40 mg Documented by: LABELLN Melatonin (Melatonin 3 Mg Tablet) 6 mg PO BEDTIME PRN PRN Reason: Insomnia Morphine Sulfate (Morphine Sulfate 2 Mg/Ml Cartridge) 1 mg IVPUSH Q4H PRN; Protocol PRN Reason: Pain, SOB Senna (Sennosides 8.6 Mg Tablet) 17.2 mg PO BEDTIME PRN PRN Reason: Constipation Sodium Chloride (0.9 % Sodium Chloride Flush 3 Ml Syringe) 3 ml IVFLUSH QSHIFT [facility] Last Admin: 05/24/21 22:18 Dose: 3 ml Documented by: SHAMARLN Labs CBC & Chem 7: 05/24/21 05:14 05/24/21 05:14 Labs: Laboratory Results - last 24 hr 05/24/21 05:14 Estimat Average Glucose Cancelled Hemoglobin A1c % Cancelled Microbiology Microbiology Results: Microbiology 05/23/21 21:21 Blood Culture - Preliminary Blood - Venous No growth after 24 hours. 05/23/21 21:10 Blood Culture - Preliminary Blood - Venous No growth after 24 hours. Assessment and Plan (1) COVID-19: Status: Acute Assessment and Plan: 55-year-old female obese here with covid 19 associated acute hypoxic respriatory failure Covid-19 with hypoxia, oset more than a week ago -continue Decadrone -Oxygen and wean as tolerated -High dose pepcid -No indication for Abx -ID recommend Doxy for 1 week and steroid for 10 days Obesity--weight loss suggested via exercise, diet and --undoubtly obesity is making present respiratory failure worse home today if wean off O2 Quality Stroke Does the patient have a stroke diagnosis?: No VTE Prior VTE?: No VTE Risk Level:: Medical - moderate - high VTE Device Contraindication: Treatment Not Indicated VTE Drug Contraindication: N/A - Med Ordered
[2021-05-25 08:00] VITALS: BP 135/67; PULSE 92; RESP 22; TEMP 37; O2SAT 91
--- NOTE | 2021-05-25 08:02 | PM.DS ---
DS: Providers Provider Date of Service: 05/25/21 Date of admission: 05/23/21 22:23 Primary care physician: Ishan Pineda MD Consults: 05/23/21 22:23 Consult to Infectious Diseases Routine Consulting Provider: Zandra Vela Reason for consultation: COVID hypoxia; further Rx guidance 05/23/21 22:31 Consult to Pulmonology Routine Consulting Provider: Jeremais Paz Reason for consultation: COVID 19; hypoxi resp failure; hx smoking; Obesity. DS: Diagnosis Discharge Diagnosis (1) COVID-19: Status: Acute DS: Summary Hospital Course Hospital Course: Chief Complaint: Shortness of breath 55-year-old female with no significant past medical history presented to the hospital with a chief complaint of shortness of breath. Patient reported that she is not feeling well over the past 1 week initially felt better for couple days and then she started failed short of breath, dyspnea on exertion and generalized tiredness.? Also complains generalized body aches. Went to the urgent care today where she was noted to be low on oxygen and subsequently sent to the hospital for further evaluation. Denies any chest pain palpitations lightheadedness or dizziness. Denies any fevers. Denies any numbness tingling Denies any GI or symptoms. Review of all other systems is negative except mentioned above ER course: Per ER team patient on presentation noted to be saturating at 86% on room air; subsequently placed on 2 L of nasal cannula with improvement of oxygen shown to 93%.; COVID-19 came back positive; CT angio of the chest was done.? Was awaiting results. Given Solu-Medrol, ceftriaxone.? Admitted to the hospital for further management.? Also reported that EKG was nonischemic and troponin was negative. Hospital course: patient was admitted due to acute hypoxic respiraotry failure due to covid pneumonia and treated with Dexamethasone, oxygen. Inititally started on IV Ceftriaxone and Azithro in ED. ID (Dr. Vela) saw her and recommends one week of Doxycline and 10 days of Dexamethasone, patient is feeling much better and would like to continue recovery at home. she is still requiring oxygen, so will be discharged on home O2 2L at rest 3L on exertion. Time Spent with Patient Time attestation: Total time spent providing and/or coordinating discharge services: Discharge coordination time: Greater than 30 minutes Quality: Stroke Does the patient have a stroke diagnosis?: No Physical Exam Vital Signs: Vital Signs: Last Vital Signs Temp 97.8 F 05/25/21 03:13 Pulse 76 05/25/21 03:13 Resp 18 05/25/21 03:13 BP 131/74 05/25/21 03:13 Pulse Ox 92 05/25/21 03:13 Oxygen Flow Rate 2 05/23/21 19:42 Body Mass Index 45.3 DS: Data Data Completed and Pending Labs on day of discharge: Laboratory Results - last 24 hr 05/24/21 05:14 Estimat Average Glucose Cancelled Hemoglobin A1c % Cancelled Preliminary micro results at discharge 05/23/21 21:21 Blood Culture - Preliminary Blood - Venous No growth after 24 hours. 05/23/21 21:10 Blood Culture - Preliminary Blood - Venous No growth after 24 hours. Discharge Plan Discharge Patient Disposition: Home, Self-Care Discharge Diagnosis: covid 19 pna Referrals: Ishan Pineda MD [Primary Care Provider] - 1 Week Discharge Medications: New dexamethasone 6 mg Tablet 6 mg PO DAILY Qty: 7 RF: 0 doxycycline hyclate 100 mg Tablet 100 mg PO Q12H Qty: 12 RF: 0 Continued cetirizine 10 mg tablet 1 tab PO DAILY RF: 0 lisinopril 10 mg tablet 1 tab PO DAILY RF: 0 levothyroxine 150 mcg tablet 1 tab PO DAILY RF: 0 albuterol sulfate 90 mcg/actuation HFA aerosol inhaler 2 puff PO Q4H RF: 0 Discharge Orders: Discharge Order (Routine); Ordered 05/25/21 Ordered By: Yandel Francois Diet: advance to usual diet Activity on Discharge: As tolerated Stand Alone Forms: Patient Portal Discharge page Care Plan Goals: full recovery from covid Health Concerns: covid 19, obesity Plan of Treatment: Take Dexamethasone and Doxycyleine as directed and follow up with your Doctor in a week Staty in isolation for 10 from diagnosis and 24 hours fever free Assessment: As above Discharge Date/Time: 05/25/21 18:34
[2021-05-25] MEDS: Famotidine 20 MG TABLET 40 MG PO (08:51)
[2021-05-25] MEDS: dexAMETHasone 6 MG TABLET PO (08:51)
[2021-05-25] MEDS: Enoxaparin Sodium 40 MG/0.4 ML SYRINGE SUBCUT (08:51)
[2021-05-25] MEDS: 0.9 % Sodium Chloride Flush 3 ML SYRINGE IVFLUSH (08:51)
[2021-05-25 12:00] VITALS: BP 137/61; PULSE 89; RESP 20; TEMP 36.8; O2SAT 93
[2021-05-25 14:13] VITALS: O2SAT 90
--- NOTE | 2021-05-25 14:18 | MHC.CM.PN ---
Female 55 DX Covid + The Pt will have a home o2 eval this afternoon. She is being discharged to home today @ her request. Pt has arranged for transportation to home.
[2021-05-25 16:00] VITALS: BP 134/66; PULSE 96; RESP 19; TEMP 36.2; O2SAT 98
--- NOTE | 2021-05-25 16:02 | PM.DS ---
DS: Providers Provider Date of Service: 05/25/21 Date of admission: 05/23/21 22:23 Primary care physician: Ishan Pineda MD Consults: 05/23/21 22:23 Consult to Infectious Diseases Routine Consulting Provider: Zandra Vela Reason for consultation: COVID hypoxia; further Rx guidance 05/23/21 22:31 Consult to Pulmonology Routine Consulting Provider: Jeremias Paz Reason for consultation: COVID 19; hypoxi resp failure; hx smoking; Obesity. DS: Diagnosis Discharge Diagnosis (1) COVID-19: Status: Acute (2) Hypoxia: Status: Acute DS: Summary Hospital Course Hospital Course: Chief Complaint: Shortness of breath 55-year-old female with no significant past medical history presented to the hospital with a chief complaint of shortness of breath. Patient reported that she is not feeling well over the past 1 week initially felt better for couple days and then she started failed short of breath, dyspnea on exertion and generalized tiredness.? Also complains generalized body aches. Went to the urgent care today where she was noted to be low on oxygen and subsequently sent to the hospital for further evaluation. Denies any chest pain palpitations lightheadedness or dizziness. Denies any fevers. Denies any numbness tingling Denies any GI or symptoms. Review of all other systems is negative except mentioned above ER course: Per ER team patient on presentation noted to be saturating at 86% on room air; subsequently placed on 2 L of nasal cannula with improvement of oxygen shown to 93%.; COVID-19 came back positive; CT angio of the chest was done.? Was awaiting results. Given Solu-Medrol, ceftriaxone.? Admitted to the hospital for further management.? Also reported that EKG was nonischemic and troponin was negative. Hospital course: patient was admitted due to acute hypoxic respiraotry failure due to covid pneumonia and treated with Dexamethasone, oxygen. Inititally started on IV Ceftriaxone and Azithro in ED. ID (Dr. Vela) saw her and recommends one week of Doxycline and 10 days of Dexamethasone, patient is feeling much better and would like to continue recovery at home. she is still requiring oxygen, so will be discharged on home O2 2L at rest 3L on exertion. Time Spent with Patient Time attestation: Total time spent providing and/or coordinating discharge services: Discharge coordination time: Greater than 30 minutes Quality: Stroke Does the patient have a stroke diagnosis?: No Physical Exam Vital Signs: Vital Signs: Last Vital Signs Temp 98.3 F 05/25/21 12:00 Pulse 89 05/25/21 12:00 Resp 20 05/25/21 12:00 BP 137/61 05/25/21 12:00 Pulse Ox 90 L 05/25/21 14:13 Oxygen Flow Rate 2 05/23/21 19:42 Body Mass Index 45.3 General: AO X 3, no acute distress Resp: Crackles, no accessory muscles used CVS: S1,S2,RRR GI: soft, non tender, non distended Neuro: motor grossly intact, alert Psych: appropriate affect, appropriate insight DS: Data Data Completed and Pending Labs on day of discharge: Preliminary micro results at discharge 05/23/21 21:21 Blood Culture - Preliminary Blood - Venous No growth after 24 hours. 05/23/21 21:10 Blood Culture - Preliminary Blood - Venous No growth after 24 hours. Discharge Plan Discharge Patient Disposition: Home, Self-Care Discharge Diagnosis: covid 19 pna Referrals: Ishan Pineda MD [Primary Care Provider] - 1 Week Discharge Medications: New dexamethasone 6 mg Tablet 6 mg PO DAILY Qty: 7 RF: 0 doxycycline hyclate 100 mg Tablet 100 mg PO Q12H Qty: 12 RF: 0 Continued cetirizine 10 mg tablet 1 tab PO DAILY RF: 0 lisinopril 10 mg tablet 1 tab PO DAILY RF: 0 levothyroxine 150 mcg tablet 1 tab PO DAILY RF: 0 albuterol sulfate 90 mcg/actuation HFA aerosol inhaler 2 puff PO Q4H RF: 0 Discharge Orders: Discharge Order (Routine); Ordered 05/25/21 Ordered By: Yandel Francois Diet: advance to usual diet Activity on Discharge: As tolerated Stand Alone Forms: Patient Portal Discharge page Care Plan Goals: full recovery from covid Health Concerns: covid 19, obesity Plan of Treatment: Take Dexamethasone and Doxycyleine as directed and follow up with your Doctor in a week Staty in isolation for 10 from diagnosis and 24 hours fever free Assessment: As above
[2021-05-25 16:17] VITALS: PULSE 100; PULSE 96; PULSE 98; O2SAT 87; O2SAT 94; O2SAT 95
--- NOTE | 2021-05-25 16:46 | PM.PNPUL ---
Subjective Subjective Date of Service: 05/25/21 Interval history: The patient was seen on exam. She continues to require oxygen supplementation. She started doxycycline. She continues be under Decadron. She is trying to perform awake proning. Objective Data Labs CBC & Chem 7: 05/24/21 05:14 05/24/21 05:14 Microbiology Microbiology Results: Microbiology 05/23/21 21:21 Blood - Venous Blood Culture - Preliminary No growth after 24 hours. 05/23/21 21:10 Blood - Venous Blood Culture - Preliminary No growth after 24 hours. Review of Systems Review of Systems Constitutional: No Fever, No Chills ENT/Mouth: No sore throat, No Rhinorrhea, No Swallowing Difficulty Eyes: No Eye Pain, No Swelling, No Redness Cardiovascular: No Chest Pain, positive SOB, No Orthopnea, positive Edema Respiratory: Positive hypoxia, Positive Cough, No Sputum, positive Wheezing, positive dyspnea Gastrointestinal: No Nausea, No Vomiting, No Diarrhea, No abdominal Pain, No Hematochezia, No Melena Genitourinary: No Dysuria, No Urinary Frequency, No Hematuria Musculoskeletal: No joint pain, No Myalgias Skin: No Skin Lesions, No rash Neuro: No Weakness, No Numbness, No Dizziness, No Headache Psych: No Anxiety/Panic, No Depression Heme/Lymph: No Bruising, No Lymphadenopathy Endocrine: No Polyuria, No Polydipsia Yes all other systems are reviewed and are negative Physical Exam Vital Signs: Vital Signs: Last Vital Signs Temp 97.2 F 05/25/21 16:00 Pulse 96 05/25/21 16:00 Resp 19 05/25/21 16:00 BP 134/66 05/25/21 16:00 Pulse Ox 98 05/25/21 16:00 Oxygen Flow Rate 2 05/23/21 19:42 Body Mass Index 45.3 Const: General: alert Neck: Neck: Yes normal visual inspection, Yes full ROM and Yes no lymphadenopathy Chest: Chest palpation & inspection: normal inspection of the chest Resp: Auscultation: diminished lung sounds Cardio: Rate: regular rate Rhythm: regular rhythm Heart sounds: S1 normal heart sound present and S2 normal heart sound present GI: Palpation (GI): Soft to palpation and nontender Auscultation: normal bowel sounds Skin: General skin exam: rashes and/or lesions noted Procedures Date of Service Date of Service: 05/25/21 Assessment and Plan Assessment and plan (1) COVID-19: Status: Acute (2) Hypoxia: Status: Acute (3) Acute respiratory failure due to COVID-19: Status: Acute Assessment and Plan: Continue Decadron Continue doxy NC O2 to keep pox >90% Awake proning Time Spent With Patient Time: Total time spent is greater than 50% in coordination of care (as documented) at patient's floor/unit and/or counseling patient: Time with patient: 15 - 24 minutes Progress Note: Quality Stroke Does the patient have a stroke diagnosis?: No
--- NOTE | 2021-05-25 18:31 | PC.NURSE ---
Patient adamant to be discharged, as she feels that staff are doing nothing for her and that she's just here for her oxygen to be monitored . Patient threatened to leave AMA regardless of staff recommendation. Patient in the 80s on room air. Hospitalist called to bedside. Unable to convince patient to stay as well. Home O2 eval completed, patient qualified for home O2. Patient discharged.
== END 2021-05-25 18:34 | disposition home or self-care (01) | DRG 137 ==
LOC: HO.ED 22:25 → HO.EDOVER 22:47 → HO.ICU 05-24 02:12 → HO.IMC 05-24 11:34
PROVIDERS: Nurse Practitioner Family; Admitting Provider Hospitalist; Emergency Provider Internal Medicine; PCP Internal Medicine; Visit Provider Internal Medicine
DX: U07.1 COVID-19 (principal); J96.01 Acute respiratory failure with hypoxia; J12.82 Pneumonia due to coronavirus disease 2019; E66.9 Obesity, unspecified; Z68.42 Body mass index [BMI] 45.0-49.9, adult; Z79.899 Other long term (current) drug therapy
CPT/HCPCS: 0241U; 36415; 71275; 80048; 80076; 82803; 83605; 83690; 83880; 84484; 85025; 85610; 85730; 87040; 93005; 94640; 94644; 96365; 96375; 99285; 99291; J0456; J0696; J1650; J2930; J8540; Q9967